=== PATIENT | female | born 1950 | race Caucasian/White ===

== ENCOUNTER 2017-04-03 06:02 | Day surgery (SDC) | payer MEDICARE ==
[~2017-04-03] VITALS: Ht 177.8 cm; Wt 133.0 kg
[~2017-04-03 06:02] MED LIST: ASPI81CH; BENZ100A PO; BUTASPCAF PO; BUTASPCAFT PO; CONEST.625; DIAZ5 PO; DICL75ER PO; ESTR2 PO; HYDACE5 PO; HYDCHLSU PO; HYDR1TAB94 PO; ISODICACE PO; LANS15EC PO; LANS30EC; MAGNESIUM/CALCIUM PO; METCAR750 PO; Mirapex1 MG PO; NAPR250 PO; NAPR500 PO; PRAM.5 PO; RXCODGUASY PO; SUMA25; SUMA25 PO
[2017-04-03] MEDS ORDERED: IBUP800 PO (06:05)
[2017-04-03] MEDS ORDERED: LANS15EC PO (06:05)
[2017-04-03] MEDS ORDERED: ELIQUIS5 MG PO (06:06)
[2017-04-03] MEDS ORDERED: METO50ER PO (06:06)
[2017-04-03] MEDS ORDERED: LISI5 PO (06:07)
[2017-04-03] MEDS ORDERED: TOPI25 PO (06:07)
[2017-04-03] MEDS ORDERED: Phentermine HCl15 MG PO (06:07)
[2017-04-03] MEDS ORDERED: FURO40 PO (06:07)
== END 2017-04-03 22:54 | disposition home or self-care (01) ==
LOC: MHTC 06:02
PROC: 5A2204Z Restoration of Cardiac Rhythm, Single (ICD-10-PCS; principal; 2017-04-03)
DX: I48.0 Paroxysmal atrial fibrillation (principal); I48.3 Typical atrial flutter; E66.9 Obesity, unspecified; G47.33 Obstructive sleep apnea (adult) (pediatric)
CPT/HCPCS: 92960; 93005; 93010; 99152; J2250; J3010; J7030

== ENCOUNTER 2019-05-16 18:51 | Emergency (ER) | payer MEDICARE ==
[~2019-05-16] VITALS: Ht 177.8 cm; Wt 140.6 kg
[~2019-05-16 18:51] MED LIST changes: +ELIQUIS5 MG PO; +FURO40 PO; +IBUP800 PO; +LISI5 PO; +METO50ER PO; +Phentermine HCl15 MG PO; +TOPI25 PO
[2019-05-16 19:55] LABS: BASOPHILS ABSOLUTE AUTO 0.03 K/mm3 (0.00-0.23); BASOPHILS PERCENT AUTO 1 % (0-2); EOSINOPHILS ABSOLUTE AUTO 0.14 K/mm3 (0.00-0.68); EOSINOPHILS PERCENT AUTO 2 % (0-6); Hematocrit 44.5 % (33.0-51.0); Hemoglobin 14.5 g/dL (11.5-16.0); IMMATURE GRAN ABSOLUTE AUTO 0.02 K/mm3 (0.00-0.10); IMMATURE GRAN PERCENT AUTO 0 % (0-1); LYMPHOCYTES ABSOLUTE AUTO 1.86 K/mm3 (0.84-5.20); LYMPHOCYTES PERCENT AUTO 29 % (21-46); MONOCYTES ABSOLUTE AUTO 0.47 K/mm3 (0.16-1.47); MONOCYTES PERCENT AUTO 7 % (4-13); Mean Corpuscular HGB 29.7 pg (26.0-34.0); Mean Corpuscular HGB Conc 32.6 g/dL (31.5-36.5); Mean Corpuscular Volume 91 fL (80-100); Mean Platelet Volume 10.9 fL (9.1-12.4); NEUTROPHILS ABSOLUTE AUTO 3.95 K/mm3 (1.96-9.15); NEUTROPHILS PERCENT AUTO 61 % (41-73); Platelet Count 238 K/mm3 (150-400); RDW Coefficient Variation 13.8 % (11.7-14.2); RDW Standard Deviation 46.8 fL (35.1-46.3); Red Blood Cell Count 4.89 M/mm3 (3.80-5.20); White Blood Cell Count 6.47 K/mm3 (4.00-11.30)
[2019-05-16 20:18] LABS: Alanine Aminotransfer (ALT/SGP 37 U/L (12-78); Albumin, Blood 3.9 g/dL (3.4-5.0); Alk Phos 109 U/L (50-136); Anion Gap 1 mmol/L (6-16); Aspartate Aminotrans (AST/SGOT 27 U/L (12-37); Bilirubin, Total 0.3 mg/dL (0.1-1.0); Blood Urea Nitrogen 21 mg/dL (8-24); Bun/Creatinine Ratio 31.2 (12.0-20.0); CO2, Blood 28 mmol/L (21-32); Calcium, Blood 9.3 mg/dL (8.5-10.1); Chloride, Blood 110 mmol/L (98-108); Creatinine, Blood 0.67 mg/dL (0.40-1.00); Globulin, Blood 4.1 g/dL (2.2-4.0); Glomerular Filtration Rate >60 (60-); Glucose, Blood 94 mg/dL (70-99); Potassium, Blood 3.9 mmol/L (3.5-5.5); Sodium, Blood 139 mmol/L (136-145)
[2019-05-16 22:24] LABS: Source, Urine Clean Catch
[2019-05-16 22:35] LABS: Bilirubin, Urine Neg (Neg); Blood, Urine Neg (Neg); Glucose Qualitative, Urine Neg (Neg); Ketones, Urine Neg (Neg); Leukocyte Esterase, Urine 1+ (Neg); Nitrite, Urine Neg (Neg); Protein, Urine Neg (Neg); Urobilinogen, Urine NORM (Normal)
[2019-05-16 22:49] LABS: Appearance, Urine Clear (Clear); Bacteria Few /hpf; Color, Urine Yellow (P-Yellow); Red Blood Cells, Urine Not Seen /hpf (0-2); Squamous Epithelial Cells Few /hpf (Few)
== END 2019-05-17 00:40 | disposition home or self-care (01) ==
LOC: ER 18:51
PROVIDERS: Physician Assistant
DX: R10.31 Right lower quadrant pain (principal); J42 Unspecified chronic bronchitis; Z79.82 Long term (current) use of aspirin; Z79.899 Other long term (current) drug therapy
CPT/HCPCS: 36415; 74177; 80053; 81001; 83690; 85025; 87086; 96374-59; 96375; 99284-25; J1170; J1885; J2405; Q9967

== ENCOUNTER 2019-11-11 11:26 | Day surgery (SDC) | payer MEDICARE ==
[~2019-11-11] VITALS: Ht 203.2 cm; Wt 136.9 kg
[2019-11-11] MEDS ORDERED: ATEN25 (12:42)
== END 2019-11-11 14:29 | disposition home or self-care (01) ==
LOC: ORSCSDS 11:26
PROVIDERS: Surgery
PROC: 0DBK8ZX Excision of Ascending Colon, Via Natural or Artificial Opening Endoscopic, Diagnostic (ICD-10-PCS; principal; 2019-11-11 12:45)
DX: Z12.11 Encounter for screening for malignant neoplasm of colon (principal); Z86.010 Personal history of colon polyps; D12.2 Benign neoplasm of ascending colon; I48.0 Paroxysmal atrial fibrillation; I10 Essential (primary) hypertension; K21.9 Gastro-esophageal reflux disease without esophagitis; E78.5 Hyperlipidemia, unspecified; G47.30 Sleep apnea, unspecified; E66.01 Morbid (severe) obesity due to excess calories; Z68.42 Body mass index [BMI] 45.0-49.9, adult; Z79.899 Other long term (current) drug therapy
CPT/HCPCS: 88305; 93005; 93010; J2250; J2405; J2704; J7120

== ENCOUNTER → 2021-05-19 | Outpatient (CLI) | payer MEDICARE ==
[~2021-05-19] MED LIST changes: +ATEN25
[2021-05-19 15:50] LABS: Anion Gap 8 mmol/L (6-16); Blood Urea Nitrogen 27 mg/dL (8-24); Bun/Creatinine Ratio 29.7 (12.0-20.0); CO2, Blood 29 mmol/L (21-32); Calcium, Blood 8.7 mg/dL (8.5-10.1); Chloride, Blood 103 mmol/L (98-108); Creatinine, Blood 0.91 mg/dL (0.40-1.00); Glomerular Filtration Rate >60 (60-); Glucose, Blood 94 mg/dL (70-99); Potassium, Blood 4.1 mmol/L (3.5-5.5); Sodium, Blood 140 mmol/L (136-145)
== END | disposition home or self-care (01) ==
LOC: LAB SHORT 15:42
PROVIDERS: Physician Assistant
DX: R60.9 Edema, unspecified (principal)
CPT/HCPCS: 80048; 83880

== ENCOUNTER → 2024-02-09 | Outpatient (CLI) | payer MEDICARE ==
[2024-02-09 15:28] LABS: BASOPHILS ABSOLUTE AUTO 0.03 K/mm3 (0.00-0.23); BASOPHILS PERCENT AUTO 1 % (0-2); EOSINOPHILS ABSOLUTE AUTO 0.14 K/mm3 (0.00-0.68); EOSINOPHILS PERCENT AUTO 3 % (0-6); Hematocrit 38.7 % (33.0-51.0); Hemoglobin 12.3 g/dL (11.5-16.0); IMMATURE GRAN ABSOLUTE AUTO 0.03 K/mm3 (0.00-0.10); IMMATURE GRAN PERCENT AUTO 1 % (0-1); LYMPHOCYTES ABSOLUTE AUTO 1.43 K/mm3 (0.84-5.20); LYMPHOCYTES PERCENT AUTO 27 % (21-46); MONOCYTES ABSOLUTE AUTO 0.45 K/mm3 (0.16-1.47); MONOCYTES PERCENT AUTO 9 % (4-13); Mean Corpuscular HGB 30.3 pg (26.0-34.0); Mean Corpuscular HGB Conc 31.8 g/dL (31.5-36.5); Mean Corpuscular Volume 95 fL (80-100); Mean Platelet Volume 10.7 fL (9.1-12.4); NEUTROPHILS ABSOLUTE AUTO 3.13 K/mm3 (1.96-9.15); NEUTROPHILS PERCENT AUTO 60 % (41-73); Platelet Count 210 K/mm3 (150-400); RDW Coefficient Variation 14.4 % (11.7-14.2); RDW Standard Deviation 49.8 fL (35.1-46.3); Red Blood Cell Count 4.06 M/mm3 (3.80-5.20); White Blood Cell Count 5.21 K/mm3 (4.00-11.30)
[2024-02-09 15:46] LABS: Albumin, Blood 3.5 g/dL (3.4-5.0); Bilirubin, Total 0.7 mg/dL (0.1-1.0); Bun/Creatinine Ratio 20.5 (12.0-20.0); Calcium, Blood 9.3 mg/dL (8.5-10.1); Creatinine, Blood 0.88 mg/dL (0.40-1.00); Globulin, Blood 3.6 g/dL (2.2-4.0); Potassium, Blood 4.2 mmol/L (3.5-5.5); Thyroid Stimulating Hormone 1.465 uIU/mL (0.360-4.800); Total Protein, Blood 7.1 g/dL (6.4-8.2)
== END ==
LOC: LAB SHORT 15:23 → LAB 15:23
PROVIDERS: Physician Assistant
DX: R53.83 Other fatigue (principal)
CPT/HCPCS: 80053; 83880; 84443; 85025

== ENCOUNTER 2024-10-08 21:49 | Observation (INO) | payer MEDICARE ==
[~2024-10-08] VITALS: Ht 177.8 cm; Wt 163.3 kg
[2024-10-08] MEDS ORDERED: Morphine Sulfate 4 MG/1 ML Injection IV ONE (22:45)
[2024-10-08 22:48] LABS: BASOPHILS ABSOLUTE AUTO 0.03 K/mm3 (0.00-0.23); BASOPHILS PERCENT AUTO 0 % (0-2); EOSINOPHILS ABSOLUTE AUTO 0.06 K/mm3 (0.00-0.68); EOSINOPHILS PERCENT AUTO 1 % (0-6); Hematocrit 36.0 % (33.0-51.0); Hemoglobin 11.6 g/dL (11.5-16.0); IMMATURE GRAN ABSOLUTE AUTO 0.02 K/mm3 (0.00-0.10); IMMATURE GRAN PERCENT AUTO 0 % (0-1); LYMPHOCYTES ABSOLUTE AUTO 1.36 K/mm3 (0.84-5.20); LYMPHOCYTES PERCENT AUTO 16 % (21-46); MONOCYTES ABSOLUTE AUTO 0.53 K/mm3 (0.16-1.47); MONOCYTES PERCENT AUTO 6 % (4-13); Mean Corpuscular HGB Conc 32.2 g/dL (31.5-36.5); Mean Corpuscular Volume 91 fL (80-100); NEUTROPHILS ABSOLUTE AUTO 6.71 K/mm3 (1.96-9.15); NEUTROPHILS PERCENT AUTO 77 % (41-73); NRBC ABSOLUTE 0.00 K/mm3 (0.00-0.02); NRBC Auto 0.0 /100 WBC (0.0-0.2); Platelet Count 242 K/mm3 (150-400); RDW Coefficient Variation 14.5 % (11.7-14.2); RDW Standard Deviation 48.3 fL (35.1-46.3)
[2024-10-08 23:06] LABS: Anion Gap 6.0 mmol/L (3-11); Blood Urea Nitrogen 17.0 mg/dL (8-24); CO2, Blood 30.0 mmol/L (21-32); Calcium, Blood 9.0 mg/dL (8.5-10.1); Chloride, Blood 109.0 mmol/L (98-108); Creatinine, Blood 0.72 mg/dL (0.40-1.00); Glucose, Blood 93.0 mg/dL (70-99); Potassium, Blood 3.5 mmol/L (3.5-5.5); Sodium, Blood 141.0 mmol/L (136-145)
[2024-10-08] MEDS ORDERED: HYDROmorphone HCl/Pf 1MG SYR IV ONE (23:10)
[2024-10-09] MEDS ORDERED: OXYC5 PO (03:41)
[2024-10-09] MEDS ORDERED: METO25ER PO (03:41)
[2024-10-09] MEDS ORDERED: K-TAB ER20 ME1 PO (03:42)
[2024-10-09] MEDS ORDERED: BUME2 PO (03:43)
[2024-10-09] MEDS ORDERED: XARELTO20 MG PO (03:43)
[2024-10-09] MEDS ORDERED: LOSA50 PO (03:44)
[2024-10-09] MEDS ORDERED: PRAM.125 PO (03:45)
[2024-10-09] MEDS ORDERED: OMEP20ER PO (03:47)
[2024-10-09] MEDS ORDERED: Ondansetron HCl 2 MG / ML 2ML Vial IV PRN (03:50)
[2024-10-09] MEDS ORDERED: Morphine Sulfate 4 MG/1 ML Injection IV PRN (03:55)
[2024-10-09 04:44] VITALS: BP 107/48
[2024-10-09] MEDS ORDERED: Ketorolac Tromethamine 15mg Vial IV PRN (05:45)
[2024-10-09] MEDS ORDERED: FentaNYL Citrate 50 MCG/ML 2 ML Injection IV PRN (05:45)
[2024-10-09] MEDS ORDERED: HYDROmorphone HCl/Pf 1MG SYR IV ONE (05:45)
[2024-10-09 07:48] VITALS: BP 107/44
[2024-10-09] MEDS ORDERED: Ketorolac Tromethamine 15mg Vial IV ONE (11:35)
[2024-10-09] MEDS ORDERED: HYDROmorphone HCl/Pf 1MG SYR IV PRN (12:25)
[2024-10-09] MEDS ORDERED: Naloxone HCl 0.4MG / ML 1ML Vial IV PRN (12:25)
[2024-10-09 15:37] VITALS: BP 102/69
[2024-10-09] MEDS ORDERED: PRAMIPEXOLE DIHY1 M1 PO (17:00)
[2024-10-09] MEDS ORDERED: Cyclobenzaprine5 MG PO (17:00)
--- NOTE | 2024-10-09 17:28 | NUR ---
SHIFT SUMMARY- PT HAS A VERY LOW TOLLERANCE FOR PAIN AND A VERY HIGH TOLLERANCE FOR PAIN MEDICATIONS. SHE HAD BEEN MEDICATED PRIOR TO SHIFT CHANGE WITH ALL OF THE PAIN MEDS AVAILABLE. SHE APPEARED TO HAVE WELL MANAGED PAIN AT THE TIME THIS RN ASSUMED CARE. PT WOKE A LITTLE LATER AND GOT HERSELF TO THE EDGE OF BED AND WAS ASSISTED TO CLEAN THE BLOOD OUT OF HER HAIR. HER RIGHT EYE HAS A SMALL LACERATION ABOVE IT AND BRUISING IS STARTING TO DEVELOPE IN THE EYE LID. PT IS IN PAIN BUT IT IS TOLLERABLE. ONCE SHE IS ASSISTED BACK TO BED, POSITIONING BECAME THE BIG PROBLEM. ONCE SHE WAS MEDICATED AND IN THE RIGHT POSITION SHE WAS ABLE TO RELAX FOR A LITTLE WHILE. ORTHO DOCTOR (DR GIBSON) CAME TO SEE THE PT. HE SPOKE TO HER ABOUT THE PROCEDURE TO DO A STEROID INJECTION IN THE HIP JOINT CAPSUL, TO HELP WITH SOME OF HER PAIN. HE STATES HE DOES NOT BELIEVE SHE NEEDS A PROCEDURE AT THIS TIME. PT WAS AWAKE AND HER RESTLESS LEGS ARE JUST STARTING TO FLARE. SPOKE TO DR BELCHER THIS EVENING THE PT MENTIONED BEING ON A WATER PILL AT HOME. SHE IS USUALLY ON BUMEX. SPOKE TO , SHE IS REVIEWING THE PT MEDICATIONS. PT IN BED, CAREGIVER AT THE BEDSIDE, CALL LIGHT IN REACH NO S&S OF DISTRESS NOTED.
[2024-10-09 19:14] VITALS: BP 93/59
[2024-10-09] MEDS ORDERED: Miconazole Nitrate 2% 85 GM PWD TOP SCH (21:00)
[2024-10-10 03:50] VITALS: BP 103/68
[2024-10-10 04:59] LABS: BASOPHILS ABSOLUTE AUTO 0.02 K/mm3 (0.00-0.23); BASOPHILS PERCENT AUTO 0 % (0-2); EOSINOPHILS ABSOLUTE AUTO 0.18 K/mm3 (0.00-0.68); EOSINOPHILS PERCENT AUTO 3 % (0-6); Hematocrit 33.4 % (33.0-51.0); Hemoglobin 10.3 g/dL (11.5-16.0); IMMATURE GRAN ABSOLUTE AUTO 0.01 K/mm3 (0.00-0.10); IMMATURE GRAN PERCENT AUTO 0 % (0-1); LYMPHOCYTES ABSOLUTE AUTO 1.41 K/mm3 (0.84-5.20); LYMPHOCYTES PERCENT AUTO 25 % (21-46); MONOCYTES ABSOLUTE AUTO 0.43 K/mm3 (0.16-1.47); MONOCYTES PERCENT AUTO 8 % (4-13); Mean Corpuscular HGB Conc 30.8 g/dL (31.5-36.5); Mean Corpuscular Volume 93 fL (80-100); NEUTROPHILS ABSOLUTE AUTO 3.65 K/mm3 (1.96-9.15); NEUTROPHILS PERCENT AUTO 64 % (41-73); NRBC ABSOLUTE 0.00 K/mm3 (0.00-0.02); NRBC Auto 0.0 /100 WBC (0.0-0.2); Platelet Count 209 K/mm3 (150-400); RDW Coefficient Variation 14.6 % (11.7-14.2); RDW Standard Deviation 49.6 fL (35.1-46.3)
[2024-10-10 05:38] LABS: Anion Gap 7.0 mmol/L (3-11); Blood Urea Nitrogen 20.0 mg/dL (8-24); CO2, Blood 28.0 mmol/L (21-32); Calcium, Blood 8.3 mg/dL (8.5-10.1); Chloride, Blood 108.0 mmol/L (98-108); Creatinine, Blood 0.65 mg/dL (0.40-1.00); Glucose, Blood 114.0 mg/dL (70-99); Potassium, Blood 3.7 mmol/L (3.5-5.5); Sodium, Blood 139.0 mmol/L (136-145)
--- NOTE | 2024-10-10 06:11 | NUR ---
SHIFT SUMMARY PT SLEPT INTERMITTENTLY DURING THE NIGHT. PT C/O RESTLESS LEGS AT THE START OF SHIFT- RESOLVED AFTER MEDICATION. MEDICATED FOR PAIN AND MUSCLE SPASMS WITH TORADOL, OXYCODONE, AND FLEXERIL PER EMAR. PT HAD PUREWICK AT START OF SHIFT, BUT C/O PAIN IN BELKYS AREA- NO INJURY SEEN- AND PUREWICK REMOVED. PT IS A 2 PERSON ASSIST WITH FWW TO BSC. GENERALIZED EDEMA, WORSE IN LE'S CONTINUES. UNABLE TO MEDICATE WITH BUMEX BASED ON BP PARAMETERS. PT DECLINED TO USE HOSPITAL CPAP- 2LNC WITH CONTINUOUS PULSE OX DURING THE NIGHT.
[2024-10-10 08:19] VITALS: BP 126/78
[2024-10-10 16:08] VITALS: BP 115/71
--- NOTE | 2024-10-10 17:45 | NUR ---
SHIFT SUMMARY PT NOTED TO BE A&OX4 AND ASSIST X2. PLAN IS TO DC HOME WITH HOME HEALTH. DC INSTRUCTION GONE OVER WITH PT WHOM STATED UNDERSTANDING. PT IS AWAITING ON RIDE AT THIS TIME.
--- NOTE | 2024-10-10 18:40 | NUR ---
NOTE ASSUMED CARE OF PT. PT A&OX4. IV GOT PULLED DUE TO PT REPORTED "NIGHTMARE". PT WAITING FOR RIDE TO LUMITE INJECTOR PT. DUSTIN SÁNCHEZ REPORTED DISCHARGE GONE OVER AND COMPLETE. PT IN BED, BED IN LOWEST POSITION, CALL LIGHT IN REACH. NO ACUTE CHANGES OCCURED.
--- NOTE | 2024-10-10 19:12 | NUR ---
NOTE GAVE REPORT TO ASSISTANT STORE MANAGER SALES
[2024-10-10 20:35] VITALS: BP 109/67
[2024-10-11] MEDS ORDERED: Enoxaparin 40 MG/0.4 ML SYR SC SCH (09:00)
== END 2024-10-10 21:15 | disposition home or self-care (01) ==
LOC: ER 21:49 → MEDS 21:50 → SURS 21:50 → MEDS 10-09 03:47 → SURS 10-09 03:47 → MEDS 10-09 03:47
PROVIDERS: Emergency Medicine; Family Medicine; ADMIT Internal Medicine
DX: M25.551 Pain in right hip (principal); M25.552 Pain in left hip; M97.01XA Periprosthetic fracture around internal prosthetic right hip joint, initial encounter; M16.12 Unilateral primary osteoarthritis, left hip; I48.20 Chronic atrial fibrillation, unspecified; E04.2 Nontoxic multinodular goiter; R60.9 Edema, unspecified; S01.81XA Laceration without foreign body of other part of head, initial encounter; I10 Essential (primary) hypertension; E66.9 Obesity, unspecified; Z68.43 Body mass index [BMI] 50.0-59.9, adult; Z79.01 Long term (current) use of anticoagulants; Z79.899 Other long term (current) drug therapy; Z96.653 Presence of artificial knee joint, bilateral; W18.30XA Fall on same level, unspecified, initial encounter
CPT/HCPCS: 36415; 70450; 71045; 72125; 73502; 74177; 80048; 83880; 85025; 94660; 94762; 96374-59; 96375; 96376; 97162; 97530; 99285-25; A9270; G0378; J1171; J1885; J2270; J3010; Q9967

== ENCOUNTER 2025-01-08 23:10 | Emergency (ER) | payer MEDICARE ==
[~2025-01-08] VITALS: Ht 177.8 cm; Wt 140.6 kg
[~2025-01-08 23:10] MED LIST changes: +BUME2 PO; +Cyclobenzaprine5 MG PO; +K-TAB ER20 ME1 PO; +LOSA50 PO; +METO25ER PO; +OMEP20ER PO; +OXYC5 PO; +PRAM.125 PO; +PRAMIPEXOLE DIHY1 M1 PO; +XARELTO20 MG PO
[2025-01-09] MEDS ORDERED: RX Prepack 2 Sprays Naloxone HCL 4 MG/SPRAY UD ONE (00:40)
[2025-01-09 05:00] VITALS: BP 107/54
== END 2025-01-09 05:36 | disposition home or self-care (01) ==
LOC: ER 23:10
DX: G89.18 Other acute postprocedural pain (principal); M79.661 Pain in right lower leg; Z79.899 Other long term (current) drug therapy; I48.91 Unspecified atrial fibrillation; I50.9 Heart failure, unspecified; Z90.710 Acquired absence of both cervix and uterus
CPT/HCPCS: 73630; 99284-25; A9270

== ENCOUNTER 2025-03-15 09:54 | Emergency (ER) | payer MEDICARE ==
[~2025-03-15] VITALS: Ht 177.8 cm; Wt 136.1 kg
[2025-03-15 10:25] LABS: BASOPHILS ABSOLUTE AUTO 0.03 K/mm3 (0.00-0.23); BASOPHILS PERCENT AUTO 1 % (0-2); EOSINOPHILS ABSOLUTE AUTO 0.20 K/mm3 (0.00-0.68); EOSINOPHILS PERCENT AUTO 3 % (0-6); Hematocrit 32.2 % (33.0-51.0); Hemoglobin 10.6 g/dL (11.5-16.0); IMMATURE GRAN ABSOLUTE AUTO 0.02 K/mm3 (0.00-0.10); IMMATURE GRAN PERCENT AUTO 0 % (0-1); LYMPHOCYTES ABSOLUTE AUTO 1.37 K/mm3 (0.84-5.20); LYMPHOCYTES PERCENT AUTO 21 % (21-46); MONOCYTES ABSOLUTE AUTO 0.45 K/mm3 (0.16-1.47); MONOCYTES PERCENT AUTO 7 % (4-13); Mean Corpuscular HGB Conc 32.9 g/dL (31.5-36.5); Mean Corpuscular Volume 89 fL (80-100); NEUTROPHILS ABSOLUTE AUTO 4.38 K/mm3 (1.96-9.15); NEUTROPHILS PERCENT AUTO 68 % (41-73); NRBC ABSOLUTE 0.00 K/mm3 (0.00-0.02); NRBC Auto 0.0 /100 WBC (0.0-0.2); Platelet Count 212 K/mm3 (150-400); RDW Coefficient Variation 15.5 % (11.7-14.2); RDW Standard Deviation 50.5 fL (35.1-46.3)
[2025-03-15 10:46] LABS: Alanine Aminotransfer (ALT/SGP 22.0 U/L (12-78); Albumin, Blood 2.9 g/dL (3.4-5.0); Albumin/Globulin Ratio 0.9 (0.8-1.8); Anion Gap 5.0 mmol/L (3-11); Aspartate Aminotrans (AST/SGOT 15.0 U/L (12-37); Bilirubin, Total 0.6 mg/dL (0.1-1.0); Blood Urea Nitrogen 29.0 mg/dL (8-24); CO2, Blood 30.0 mmol/L (21-32); Calcium, Blood 8.6 mg/dL (8.5-10.1); Chloride, Blood 107.0 mmol/L (98-108); Creatinine, Blood 0.86 mg/dL (0.40-1.00); Globulin, Blood 3.4 g/dL (2.2-4.0); Glucose, Blood 98.0 mg/dL (70-99); Potassium, Blood 3.4 mmol/L (3.5-5.5); Sodium, Blood 139.0 mmol/L (136-145); Total Protein, Blood 6.3 g/dL (6.4-8.2)
[2025-03-15] MEDS ORDERED: LOSA25 PO (12:52)
[2025-03-15 13:30] VITALS: BP 146/79
== END 2025-03-15 15:05 | disposition home or self-care (01) ==
LOC: ER 09:54
PROVIDERS: Emergency Medicine
DX: R55 Syncope and collapse (principal); I95.9 Hypotension, unspecified; T50.905A Adverse effect of unspecified drugs, medicaments and biological substances, initial encounter; M25.551 Pain in right hip; I48.91 Unspecified atrial fibrillation; I11.0 Hypertensive heart disease with heart failure; I50.9 Heart failure, unspecified; Z79.899 Other long term (current) drug therapy; Z79.01 Long term (current) use of anticoagulants
CPT/HCPCS: 80053; 83880; 84443; 84484; 85025; 93005; 93010; 99284-25; A6590; A9270